=== PATIENT | male | born 1980 | race Caucasian/White ===

== ENCOUNTER 2018-08-02 04:05 | Emergency (ER) | payer OTHER ==
--- NOTE | 2018-08-02 04:24 | ED Physician Documentation ---
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 No: Fever, Unable to swallow, Headache, Cough Recently seen: Not recently seen - Additional information Additional information: c/o sharp left ear pain x 2-3 hours, left-sided sore throat. left ear "feels clogged". Review of Systems Constitutional: denies: Fever Ears: reports: Ear pain. denies: Drainage/discharge, Tinnitus/ringing Nose: denies: Sinus pressure / pain Throat: reports: Sore throat PD PAST MEDICAL HISTORY - Past Medical History Past Medical History: No - Past Surgical History Past Surgical History: No - Present Medications Home Medications: Ambulatory Orders Medication Instructions Recorded Confirmed Amox/Clav 875/125 [Augmentin] 1 each PO Q12H #14 tablet 08/02/18 Ibuprofen 600 mg PO Q6HR PRN #20 tablet 08/02/18 - Allergies Allergies/Adverse Reactions: Allergies Allergy/AdvReac Type Severity Reaction Status Date / Time No Known Drug Allergies Allergy Verified 08/02/18 04:09 - Social History Does the pt smoke?: No Smoking Status: Never smoker Does the pt drink ETOH?: Yes Does the pt have substance abuse?: No - Immunizations Immunizations are current?: Yes - POLST Patient has POLST: No PD ED PE NORMAL - Vitals Vital signs reviewed: Yes - General General: Alert and oriented X 3, No acute distress, Well developed/nourished - HEENT HEENT: Moist mucous membranes, Pharynx benign - Neck Neck: Supple, no meningeal sign PD ED PE EXPANDED - HEENT HEENT: L TM red, L TM bulging, Other (normal right TM) Results - Vitals Vitals: Vital Signs - 24 hr 08/02/18 08/02/18 04:08 05:02 Temperature 36.0 C L 36.2 C L Heart Rate 68 70 Respiratory 16 15 Rate Blood Pressure 164/107 H 153/108 H O2 Saturation 98 98 Oxygen O2 Source Room air PD MEDICAL DECISION MAKING - ED course Complexity details: considered differential, d/w patient Departure - Departure Disposition: 01 Home, Self Care Clinical Impression: Otitis media Qualifiers: Otitis media type: suppurative Chronicity: acute Laterality: left Recurrence: non-recurrent Spontaneous tympanic membrane rupture: without spontaneous rupture Qualified Code(s): H66.002 - Acute suppurative otitis media without spontaneous rupture of ear drum, left ear Condition: Good Instructions: ED Otitis Media Acute Adult Prescriptions: Ibuprofen 600 mg PO Q6HR PRN #20 tablet PRN Reason: Pain Amox/Clav 875/125 [Augmentin] 1 each PO Q12H #14 tablet Discharge Date/Time: 08/02/18 05:04
[2018-08-02] MEDS ORDERED: AMOX/CLAV 875 MG/125 MG TABLET PO STA (04:44)
[2018-08-02] MEDS ORDERED: IBUPROFEN 600 MG TABLET PO STA (04:45)
[2018-08-02 05:04] VITALS: BP 153/108
== END 2018-08-02 05:04 | disposition home or self-care (01) ==
LOC: ED 04:05
DX: H66.002 Acute suppurative otitis media without spontaneous rupture of ear drum, left ear (principal)
CPT/HCPCS: 99283; A9270